=== PATIENT | male | born 1940 | race Caucasian/White ===

== ENCOUNTER 2025-04-26 16:01 | Emergency (ER) | payer MEDICARE, OTHER ==
[~2025-04-26] VITALS: Ht 175.3 cm; Wt 74.0 kg
[~2025-04-26 16:01] MED LIST: ATORVASTATIN CA10 MG PO; FIBER LAXATIVE PO; HALFPRIN162 MG PO; LISINOPRIL20 MG PO; MULTIVITAMINS1 EAC7 PO; OMEGA 3 1,0001 EACH PO; PRIMIDONE50 MG PO; SIMVASTATIN20 MG PO; VITAMIN D2000 UNIT PO
[2025-04-26 17:25] VITALS: BP 119/68
== END 2025-04-26 17:25 | disposition home or self-care (01) ==
LOC: ED 16:01
DX: K40.90 Unilateral inguinal hernia, without obstruction or gangrene, not specified as recurrent (principal); I10 Essential (primary) hypertension; E78.5 Hyperlipidemia, unspecified; Z79.82 Long term (current) use of aspirin; Z79.899 Other long term (current) drug therapy; Z87.891 Personal history of nicotine dependence
CPT/HCPCS: 99283

== ENCOUNTER 2025-06-15 09:45 | Day surgery (SDC) | payer MEDICARE, OTHER ==
[~2025-06-15] VITALS: Ht 177.8 cm; Wt 77.1 kg
[2025-06-15 08:11] VITALS: BP 128/65
[~2025-06-15 09:45] MED LIST changes: +CEFAZOLIN SODIUM 2 GM/20 ML SYR IV SCH; +DEXAMETHASONE SOD PHOS 10 MG/ML VIAL ONE; +HEParin SOD (PORCINE) 5,000 UNIT/ML SDV SUB-Q SCH; +IBLOOD GLUCOSE TEST STRIP 1 EA TEST VI PRN; +LACTATED RINGER'S 1,000 ML IV SCH; +LIDOCAINE HCL 1% 5 ML SDV INJ ONE; +LIDOCAINE HCL 2% 20 MG/ML VIAL INJ ONE; +Ropivacaine HCl 0.5% 30 ML VIAL ONE; +TOPROL XL25 MG PO; +TURMERIC750 MG PO
[2025-06-15] MEDS ORDERED: ACETAMINOPHEN 1,000 MG/100 ML VIAL ONE (10:12)
[2025-06-15] MEDS ORDERED: LACTATED RINGER'S 1,000 ML IV ONE (10:21)
[2025-06-15] MEDS ORDERED: fentaNYL citrate 100 MCG/2 ML VIAL ONE (10:21)
[2025-06-15] MEDS ORDERED: fentaNYL citrate 50 MCG/ML SDV IV PRN (10:30)
[2025-06-15] MEDS ORDERED: HYDROmorphone HCL 1 MG/ML SYR IV PRN (10:30)
[2025-06-15] MEDS ORDERED: PROCHLORPERAZINE EDISYLATE 10 MG/2 ML VIAL IV PRN (10:30)
[2025-06-15] MEDS ORDERED: IBLOOD GLUCOSE TEST STRIP 1 EA TEST VI PRN (10:30)
[2025-06-15] MEDS ORDERED: NALOXONE HCL 0.4 MG SYR IV PRN ×2 (10:30→11:45)
[2025-06-15] MEDS ORDERED: HYDROCODON-ACE1 EA10 PO (11:36)
[2025-06-15] MEDS ORDERED: IBUPROFEN600 MG PO (11:36)
[2025-06-15] MEDS ORDERED: ACETAMINOPHEN500 MG PO (11:36)
--- NOTE | 2025-06-15 11:44 | NUR ---
06/15/25 1144 Sheets,Susi 1117 PT ARRIVED TO PACU ON 6L VIA MASK, ORAL AIRWAY IN PLACE AND PT ASLEEP AND CHIN LIFT USED OFF AND ON TO MAINTAIN AIRWAY. RESP EVEN AND UNLABORED.
[2025-06-15] MEDS ORDERED: HYDROCODONE/ACETA 5/325 TAB PO PRN (11:45)
[2025-06-15] MEDS ORDERED: ACETAMINOPHEN 500 MG TAB PO PRN (11:45)
[2025-06-15] MEDS ORDERED: IBUPROFEN 600 MG TAB PO PRN (11:45)
[2025-06-15] MEDS ORDERED: LACTATED RINGER'S 1,000 ML IV SCH (11:45)
[2025-06-15 11:55] VITALS: BP 152/67
--- NOTE | 2025-06-15 12:06 | NUR ---
1155-PT ARRIVED BACK TO ON RA, AAOX3, ANSWERING QUESTIONS APPROPRIATELY, AND ABLE TO MAKE HIS NEEDS KNOWN. IN ROOM UPON PTS RETURN. REPORT RECEIVED FROM BUILDING EQUIPMENT OPERATOR AND SURGICAL SITE VISUALIZED WITH BUILDING EQUIPMENT OPERATOR. SMALL AMT OF DRAINAGE NOTED NEAR MEDIAL EDGE OF DRSG. DRSG REMAINS INTACT. VS TAKEN. IV SITE ASSESSED. PT REPORTS PAIN 3/10 IN SURGICAL SITE. PT REPORTS THIS IS TOLERABLE AND DECLINES PAIN MEDICATION AT THIS TIME. PT SIPPING ON WATER AND DENIES NAUSEA WHEN ASKED. PT PROVIDED WITH PUDDING. ALL QUESTIONS ANSWERED. BED IN LOW POSITION, WHEELS LOCKED, BILAT RAILS IN PLACED FOR SAFETY. CALL LIGHT WITHIN PT REACH.
[2025-06-15 12:56] VITALS: BP 142/67
--- NOTE | 2025-06-15 13:40 | NUR ---
1255-INTO PTS ROOM FOR ROUTINE REASSESSMENT. VS TAKEN. IV SL'D. SURGICAL SITE OBSERVED AND NO ACUTE CHANGES NOTED FROM PREVIOUS ASSESSMENT. PT DENIES NAUSEA WHEN ASKED. PT REPORTS PAIN IN SURGICAL SITE REMAINS AT 3/10. AT BEDSIDE. PT HAS TOLERATED PO FOOD AND FLUIDS WELL, WITHOUT ISSUES. PT FEELS HE COULD VOID. PT EDUCATED ON USE OF HAND ON SURGICAL SITE TO SPLINT AREA WITH POSITION CHANGES, ECT. PT VERBALIZED UNDERSTANDING AND THEN DEMONSTRATED UNDERSTANDING WITH GETTING UP TO EOB. PT ASSISTED WITH AMBULATION TO RESTROOM FOR SAFETY. PT ABLE TO VOID APPROX 400 ML OF CLR, YELLOW URINE. PT ASSISTED BACK TO ROOM. SURGICAL SITE VISUALIZED POST-AMBULATION. NO ACUTE CHANGES NOTED. PTS ASSISTING PT IN DRESSING FOR DISCHARGE. 1325-INTO PTS ROOM FOR DC EDUCATION. PT AND PRESENT. PT PROVIDED WITH VERBAL AND WRITTEN DC INSTRUCTION WELL F/U APPT FOR 07/24/25 AT 1045. PT GIVEN HARD COPY RX FOR PAIN MEDICATION. 1335- LEFT TO PULL CAR AROUND TO FRONT FOR DC. 1340-IV REMOVED, TIP APPEARS INTACT. PRESSURE DRSG APPLIED WITH GAUZE AND COBAN.
--- NOTE | 2025-06-15 18:22 | NUR ---
PT DISCHARGED FROM DS VIA WC TO PASSENGER SIDE OF WIFES VEHICLE. ALL PERSONAL BELONGINGS TAKEN WITH PT.
--- NOTE | 2025-06-16 10:57 | OR ---
[facility] [address] [place], [place] [address] Signed DATE OF OPERATION: 06/15/2025 SURGEON: Charla Johnson MD PREOPERATIVE DIAGNOSIS: Bilateral inguinal hernia, right greater than left symptoms. POSTOPERATIVE DIAGNOSIS: Right direct inguinal hernia. PROCEDURE: Repair of right inguinal hernia with implantation of Prolene mesh (underlay technique). ANESTHESIA: General LMA, Terrance Mccoy CRNA and local 10 mL of 0.25% Marcaine with epinephrine and preoperative ilioinguinal nerve block, 0.25% ropivacaine. INDICATION: This 84-year-old white man is a patient of Dr. David Read. He has had complaints of primary right lower abdominal pain and was referred to the emergency room by CAROLE Weller for evaluation. Dr. Albert Renner evaluated him on April 26, 2025 and a right inguinal hernia was identified clinically considered not strangulated or incarcerated. A CT scan was performed under the direction of Adriane Coyle on May 03, 2025 which confirmed a fat containing left inguinal hernia and increase in size of a small cystic lesion in the uncinate process of the pancreas (which is being followed by others) as well as a right inguinal hernia with small bowel within it. He does have some mild urinary outlet obstructive symptoms, but no chronic cough or constipation. Given the symptomatic nature of his right inguinal hernia repair on that side was offered at this time though likely he will undergo a left inguinal hernia repair at some other time. The risk of bleeding, infection, recurrence, chronic pain, failure to cure his pain problem, and so forth were all reviewed. He understands and wished to proceed. FINDINGS: He had a direct hernia. There was no sign of indirect sac. Cord structures were preserved as was the ilioinguinal and iliohypogastric nerve. Repair consisted of implantation of Prolene mesh in an underlay technique with special care to avoid excessive tension on the cord structures and good preservation of the ilioinguinal and iliohypogastric nerves. Electronically Signed By: CHARLA JOHNSON MD 06/16/25 1057 PATIENT NAME: MISTI MCDANIEL OPERATIVE REPORT DATE OF : 44 REPORT #: [id number] PHYSICIAN: CHARLA JOHNSON MD PCP: DAVID READ MD REPORT IS CONFIDENTIAL AND NOT TO BE RELEASED WITHOUT AUTHORIZATION [facility] [address] [place] [address], [place] [address] Signed DESCRIPTION OF PROCEDURE: The patient was brought to the operating room after undergoing a preoperative ilioinguinal nerve block by the print room worker with ropivacaine. He was given a general LMA type anesthetic. Preoperative antibiotics Ancef was given and sequential compression device stockings were used as well. The lower abdomen was clipped and prepared with a chlorhexidine solution. An Ioban was applied to the skin. An incision was made along the line of skin tension in the right groin. Dissection carried through the skin with a 15 blade and ultimately electrocautery. Ever layer was divided revealing the underlying external oblique. External oblique was incised along its fibers revealing a bulky hernia. The ilioinguinal nerve was dissected free from the cremasteric muscle fibers with sharp dissection reflected around an external oblique providing good exposure to the cord. The cord was carefully mobilized from the floor with blunt and electrocautery dissection and ultimately encircled with [place] drain. Careful inspection of the cord showed no sign of indirect sac. The hernia was completely a direct hernia with complete attenuation of the fibers of the fascia of transversalis. An Allis clamp was applied to the tendon of the transversus abdominis and the attenuated fibers of the fascia of the transversalis were incised with electrocautery. The properitoneal fat was bluntly . The segment of Prolene mesh (ProGrip type) was cut to an elliptical configuration and secured in an underlay technique with interrupted 2-0 Prolene sutures. A defect was cut in the graft to accommodate the cord and the tails of the graft were secured laterally but not encircled entirely. The aperture through which the cord past was somewhat lax and on that basis was secured with interrupted 2-0 Prolene as well. Irrigation was undertaken and 10 mL of 0.25% Marcaine with epinephrine was injected locally. The cord was placed in the canal as was the ilioinguinal nerve. The iliohypogastric vein was dissected free to assure that it was not covered by any sutures and it was completely free. The external oblique was reapproximated with running 2-0 Vicryl suture. Ever layer was reapproximated with interrupted 3-0 Vicryl and skin closed with running subcuticular 3-0 Vicryl. Steri-Strips were applied as was an Acticoat dressing. The patient tolerated procedure well. Blood loss was minimal. Complications none. MD OFELIA Fox/WILLIEL /[id number] Electronically Signed By: CHARLA JOHNSON MD 06/16/25 1057 PATIENT NAME: MISTI MCDANIEL OPERATIVE REPORT DATE OF : 44 REPORT #: [id number] PHYSICIAN: CHARLA JOHNSON MD PCP: DAVID READ MD REPORT IS CONFIDENTIAL AND NOT TO BE RELEASED WITHOUT AUTHORIZATION [address] [place], [place] [address] Signed cc: David Read MD Copies: DAVID READ MD ~ Electronically Signed By: CHARLA JOHNSON MD 06/16/25 1057 PATIENT NAME: MISTI MCDANIEL OPERATIVE REPORT DATE OF : 44 REPORT #: [id number] PHYSICIAN: CHARLA JOHNSON MD PCP: DAVID READ MD REPORT IS CONFIDENTIAL AND NOT TO BE RELEASED WITHOUT AUTHORIZATION
== END 2025-06-15 13:45 | disposition home or self-care (01) ==
LOC: DS 09:45
PROVIDERS: ATTEND Surgery
PROC: 0YU50JZ Supplement Right Inguinal Region with Synthetic Substitute, Open Approach (ICD-10-PCS; principal; 2025-06-15 09:45)
DX: K40.20 Bilateral inguinal hernia, without obstruction or gangrene, not specified as recurrent (principal); I10 Essential (primary) hypertension; E78.00 Pure hypercholesterolemia, unspecified; Z87.891 Personal history of nicotine dependence; Z79.899 Other long term (current) drug therapy; Z98.52 Vasectomy status
CPT/HCPCS: J0131; J0690; J1100; J1644; J2405; J2704; J2795; J3010; J7121